=== PATIENT | female | born 1960 | race Caucasian/White ===

== ENCOUNTER 2022-08-02 06:06 | Day surgery (SDC) | payer OTHER, SELFPAY ==
[2022-08-02] VITALS (13 sets, daily range): BP systolic 86–114; BP diastolic 47–68; PULSE 67–92; RESP 16; TEMP 36.7–37.5; O2SAT 95–99; BMI 21.1
[2022-08-02] MEDS: SODIUM CHLORIDE 0.9 % (FLUSH) 10 ML SYRINGE IVF (07:00)
[2022-08-02] MEDS: LACTATED RINGERS 1000 ML 1,000 ML 100 ML IV (07:00)
[2022-08-02] MEDS: CEFAZOLIN 1 GM inj IVP (07:36)
[2022-08-02] MEDS: BUPIVACAINE 0.5% 30 ML INJECTION (08:20)
[2022-08-02] MEDS: BUPIVACAINE LIPOSOME 133 MG/10 ML INJ INFILTRATI (08:20)
--- NOTE | 2022-08-02 08:34 | P.GSOP_ITS ---
Operative Note Date of procedure: 08/02/22 Type of Procedure: Hemorrhoidectomy Procedure Description: After discussing the risks and benefits of the procedure, the patient signed informed consent.? The operative site was marked and the patient was brought to the operating room and placed on the operating table in supine position.? Care was taken to pad the patient's pressure points.?? The patient was then given sedation and spinal anesthetic by anesthesia.?? The operative site was then prepped and draped in the usual sterile fashion.? A time-out was then performed. The patient was then transferred to the Operating Room table, placed in the prone jackknife position with appropriate bumps and padding. Care was taken to ensure the genitalia and breasts were properly positioned on the hip and chest rolls, respectively. The shoulders and arms were positioned with care to protect the brachial plexus. The buttocks were taped laterally. A sterile prep and drape was done in the usual fashion. External examination, digital rectal examination, and anoscopic examination were all done and revealed significantly redundant internal hemorrhoidal tissue in the anterior midline, posterior midline and right lateral aspects of the anal canal with associated residual hemorrhoidal skin tags. Based on this assessment, plans were made for a 3-quadrant closed hemorrhoidectomy to encompass the aforementioned aspects of the anal canal. Attention was initially directed to the largest area of involvement and then went to the progressively smaller areas and all were handled in the same fashion. An elliptical incision was made with a needle tip electrocautery from the anoderm up into the anal canal just above the dentate line. Careful dissection of the hemorrhoid complex was done in the plane between the internal anal sphincter and the submucosal vascular plexus up to just above the dentate line in each quadrant described above. Having established the proper plane, the hemorrhoidal tissue was then excised with the Ligasure device and sent to Pathology for analysis. Care was taken to preserve mucosa for a tension-free closure. The internal sphincter fibers were visualized at the base of the wound and were intact. The wound was closed in a running locked manner starting at the apex (proximal aspect of elliptical excision) with 3-0 chromic suture, coming out to the anoderm and then running back up in a simple fashion and tying down at the apex. Hemostasis was excellent. Mixture of Marcaine and Exparel was injected into the surgical field to assist with postoperative pain. The patient tolerated procedure well. There were no apparent complications. Instrument, sponge, and needle counts were correct at the end of the case. Sterile dressings were then applied. ? The patient was then woken and transported to the recovery area in stable condi tion. ? Findings: Internal hemorrhoids of the anterior midline, posterior midline and right lateral. A 3 quadrant hemorrhoidectomy was performed. Anesthesia: MAC and spinal Surgeon: Raya Gibson MD Estimated blood loss (mL): 10 Condition: stable Disposition: same day
--- NOTE | 2022-08-02 08:37 | W.ANESCHARGE ---
Anesthesia Charges Start Date/Time Anesthesia Start Date: 08/02/22 Anesthesia Start Time: 07:26 Stop Date/Time Anesthesia Stop Date: 08/02/22 Anesthesia Stop Time: 08:35 Summary Emergency: No
--- NOTE | 2022-08-02 08:45 | W.ANESCHARGE ---
Anesthesia Charges Start Date/Time Anesthesia Start Date: 08/02/22 Anesthesia Start Time: 07:26 Stop Date/Time Anesthesia Stop Date: 08/02/22 Anesthesia Stop Time: 08:35 Summary Emergency: No
[2022-08-02] MEDS: OXYCODONE 5 MG TABLET PO (10:05)
--- NOTE | 2022-08-05 04:41 | PC.NURSE ---
Pt called regarding post op pain from 08/02 hemorrhoidectomy stating the pain has slowly been getting worse, even with oxycodone q6h shes been taking scheduled along with tylenol and advil, using sitz bath and ice, had soft bms no bleeding or constipation. MD Gibson was called/updated and informed to have patient take up to 2 tables of oxycodone q6h, pt was agreeable to this, informed s&s to monitor.
== END 2022-08-02 10:35 | disposition home or self-care (01) ==
PROVIDERS: PCP Family Medicine; Visit Provider Surgery
PROC: (CPT 46260; principal; 2022-08-02 07:30)
DX: K64.8 Other hemorrhoids (principal)
CPT/HCPCS: 46260; 88304; 902; A9270; C9290; J0330; J0690; J1100; J2250; J2400; J2405; J2704; J3010; J3490; J7120

== ENCOUNTER 2023-07-31 07:00 | Outpatient (CLI) | payer OTHER, SELFPAY ==
--- NOTE | 2023-07-31 07:15 | MR_ITS ---
[facility] [address] [facility] [address] Phone:?[phone] Fax:?[phone] Referring Physician Information: Petr Johnson M.D. [address] [place] [id number] Phone:?[phone] Fax:?[phone] Patient:Thierno David D.O.B:?1960 Sex:?Female Phone:?[phone] [facility] MRN:?[id number] Exam Date:?07/31/2023 EXAM: MRI EXAMINATION OF THE LEFT KNEE CLINICAL INFORMATION: Left knee pain. No specific injury. No history of surgery to this area. Catching. Limited range of motion. Evaluate medial meniscus tear. TECHNICAL INFORMATION: Coronal PD and STIR. Axial PD and T2 fat saturation. Sagittal PD and PD fat saturation images acquired. No prior studies for comparison. INTERPRETATION: Bones: Localized subchondral cystic change involves the trochlear groove. No occult fracture, osseous contusion or stress reaction. No other abnormal bone marrow edema pattern is identified. Ligaments and tendons: Residua of a chronic sprain injury with mild thickening involving the mid to proximal medial collateral ligament. The iliotibial band, fibular collateral ligament, biceps femoris tendon and popliteus tendon all are intact. The anterior cruciate ligament is intact without acute sprain or tear. The posterior cruciate ligament is intact. Extensor Mechanism: The patellar and quadriceps tendons are intact. The medial and lateral retinacula are intact. Knee Joint: There is no knee joint effusion. There is a small popliteal cyst. There is no discrete loose body seen within the joint. Medial Compartment: There is a low to moderate grade appearance of a radial tear situated posterior to the midportion of the posterior horn medial meniscus. Surrounding changes of horizontal undersurface tearing. No displaced flap fragment or parameniscal cyst. There is no focal chondral defect. Mild chondral thinning appears present involving the medial joint compartment. Lateral Compartment: There is no evidence for discrete lateral meniscal tear. No displaced flap fragment or parameniscal cyst. There is no focal chondral defect. No other significant changes of chondromalacia. 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 No other significant chondromalacia. CONCLUSION: 1. There is a low to moderate grade radial tear situated posterior to the midportion of the posterior horn medial meniscus with surrounding horizontal undersurface tearing. 2. No evidence for a lateral meniscal tear. The cruciate ligaments are intact. 3. 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 4. Mild chondral thinning involves the medial joint compartment. 5. Residua of a low-grade chronic MCL sprain injury. KES Electronically signed on 07/31/2023 2:56:00 PM by Jhonathan Richmond M.D.
== END 2023-07-31 07:01 | disposition home or self-care (01) ==
PROVIDERS: PCP Family Medicine; Visit Provider Orthopaedic Surgery
DX: M25.562 Pain in left knee (principal); S83.242A Other tear of medial meniscus, current injury, left knee, initial encounter; M94.262 Chondromalacia, left knee; S83.412A Sprain of medial collateral ligament of left knee, initial encounter
CPT/HCPCS: 73721

== ENCOUNTER 2023-09-05 10:36 | Day surgery (SDC) | payer OTHER, SELFPAY ==
[2023-09-04] MEDS: LACTATED RINGERS 1000 ML 1,000 ML 100 ML IV (11:27)
[2023-09-05] VITALS (14 sets, daily range): BP systolic 95–111; BP diastolic 54–68; PULSE 66–88; RESP 12–16; TEMP 36.2–36.6; O2SAT 95–99; BMI 21.2
[2023-09-05] MEDS: SODIUM CHLORIDE 0.9 % (FLUSH) 10 ML SYRINGE IVF (11:28)
[2023-09-05] MEDS: CEFAZOLIN 2 GM INJ IVP (12:17)
[2023-09-05] MEDS: BUPIVACAINE 0.25% 30 ML INJECTION (12:45)
--- NOTE | 2023-09-05 12:48 | P.ORPRC_ITS ---
Procedure Note Date of procedure: 09/05/23 Procedure: PREOPERATIVE DIAGNOSIS: Left knee medial meniscus tear POSTOPERATIVE DIAGNOSIS: Left knee medial meniscus tear NAME OF OPERATION: Left knee arthroscopic partial medial meniscectomy SURGEON: Petr Johnson MD TRANSPORTATION WORKER: RONDA Cruz ANESTHESIA: Spinal ESTIMATED BLOOD LOSS: 0 mL COMPLICATIONS: None SPECIMENS: None DRAINS: None PREOPERATIVE ANTIBIOTICS: Ancef 2 gram INDICATIONS: The patient is a 63-year-old with a history of left knee medial pain. MRI scan is consistent with a medial meniscus tear. Despite appropriate nonoperative management, including activity modification, antiinflammatories, [id number] pain medication, bracing, physical therapy, and injections they continue to have pain and disability. Operative intervention was offered. The risks, benefits and expected outcomes were discussed in detail. These included but were not limited to: Infection, bleeding, injury to blood vessel or nerve, venous thromboembolism. All questions were answered to their satisfaction. PROCEDURE: Spinal anesthesia was administered. The patient was placed supine on the operating room table. The left lower extremity was prepped and draped in the usual sterile fashion. The limb was exsanguinated with the Uday bandage. The pneumatic tourniquet was inflated to 300 mmHg. A standard anterolateral portal was established. The arthroscope was introduced. The working portal was established anteromedially. Diagnostic arthroscopy was performed with findings as follows: The suprapatellar pouch is normal. Articular surface on the patella is normal. Articular surface on the trochlea is normal. The medial gutter is normal. The medial compartment shows diffuse grade 1/2 change on the medial femoral condyle, grade 1 change on the medial tibial plateau. The medial meniscus has a small radial tear at the junction of the midbody and posterior horn, which does not communicate with the capsule. There is some undersurface horizontal cleavage tearing.. The notch shows the ACL to be intact. The lateral compartment shows normal articular cartilage on the lateral femoral condyle and lateral tibial plateau. The lateral meniscus is normal. The lateral gutter is normal. The posterior horn of the medial meniscus was debrided to a stable base using the shaver. Arthroscopic instruments were removed, the portal sites were Steri-Stripped closed, the knee was infiltrated with 30 mL of 0.25% Marcaine without epinephrine. A dry dressing was applied, the tourniquet was released. Sponge and needle counts were correct x 2. The patient tolerated the procedure well. There were no apparent complications. They were carefully transferred to the hospital bed and taken to the postanesthesia care unit in satisfactory condition. PLAN: The patient will be discharged to home. They may weightbear as tolerates. Range of motion will be unrestricted. They will follow up in the office next week for a wound check.
--- NOTE | 2023-09-05 13:22 | W.ANESCHARGE ---
Anesthesia Charges Start Date/Time Anesthesia Start Date: 09/05/23 Anesthesia Start Time: 12:04 Stop Date/Time Anesthesia Stop Date: 09/05/23 Anesthesia Stop Time: 12:57
--- NOTE | 2023-09-05 15:26 | SUR.PHASEII ---
1500: pt ambulated to car with SBA. denies pain in left knee.
--- NOTE | 2023-09-16 06:37 | W.ANESCHARGE ---
Anesthesia Charges Start Date/Time Anesthesia Start Date: 09/05/23 Anesthesia Start Time: 12:04 Stop Date/Time Anesthesia Stop Date: 09/05/23 Anesthesia Stop Time: 12:57
== END 2023-09-05 15:00 | disposition home or self-care (01) ==
PROVIDERS: PCP Family Medicine; Visit Provider Orthopaedic Surgery
PROC: (CPT 29870; principal; 2023-09-05 12:15)
DX: M23.222 Derangement of posterior horn of medial meniscus due to old tear or injury, left knee (principal)
CPT/HCPCS: 29881; 1400; J0665; J0690; J1100; J2250; J2405; J2704; J3010; J7120

== ENCOUNTER 2024-04-03 18:15 | Outpatient (CLI) | payer OTHER, SELFPAY ==
--- OUTSIDE RECORDS SUMMARY | 2024-04-03 18:16 | XMS_ITS | Clinical Summary ---
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 90 Tablet 09/03/2023 Active Active Problems Problem Noted Date Diagnosed Date Acute diverticulitis 01/02/2018 Adenomatous colon polyp 12/28/2016 Overview: Colonoscopy 11/2016 polyp repeat in 5 years Colonoscopy 04/2022 diverticuli, redundant colon, repeat in 7 years, colowrap, 2 gallons Peg Adjustment disorder with mixed anxiety and depre ssed mood 01/26/2015 Resolved Problems Problem Noted Date Diagnosed Date Resolved Date Acute diverticulitis 01/02/2018 018 Encounters Date Type Department Care Team Description 04/03/2024 Nurse Triage [facility] [address] [place] [address] Donna Nolasco MD Vaginal Problem 01/27/2024 7:45 AM CDT Office Visit [facility] [address] [place] [address] Aby Uriarte PA Abdominal Pain 01/27/2024 Travel 01/27/2024 Nurse Triage [facility] [address] [place] [address] Donna Nolasco MD Abdominal Pain from Last 3 Months Immunizations Name Administration Dates Next Due COVID-19 vaccine (Moderna 100mcg/0.5mL) PF, MDV 01/24/2021,12/27/2020 COVID-19 vaccine (Moderna 50 mcg/0.5mL) 12YO+ BIVALENT PF, MDV 07/06/2023 COVID-19 vaccine (Moderna Jac lora 50mcg/0.25mL) PF, MDV 09/19/2021 Influenza, IIV4 07/17/2022 Influenza, IIV4 (=>6mos) MDV 06/17/2020,07/27/20 19 Influenza, ccIIV3 (Age >=18 Years) 07/06/2023 Influenza,CCIIV4 PRESERV FREE 06/28/2021 Tdap 07/17/2022 Zoster (Shingrix-RZV, recombinant) 03/29/2022, Family History Medical History Relation Name Comments Hyperlipidemia Father Ta Zazueta Other Paternal Grandfather liver c irrhosis Other Paternal Grandmother Chayo on's Other Sister 4 uterine problem s Cancer-breast No Family History Relation Name Status Comments Daughter Kassandra Alive Father Ta Zazueta Alive Maternal Grandfather Maternal Grandmother Mother Marcella Zazueta Alive Paternal Grandfather Paternal Grandmother Sister 1 Charlotte Alive Sister 2 Clara Alive Sister 3 Autumn Alive Sister 4 Son Og Alive Social History Tobacco Use Types Packs/Day Years Used Date Smoking Tobacco: Never Smokeless Tobacco: Never Tobacco Cessation:Counseling Given: Yes Alcohol Use Standard Drinks/Week Comments Yes 0.8 (1 standard drink = 0.6 oz p ure alcohol) PHQ-2 Answer Date Recorded PHQ-2 TOTAL SCORE 0 02/26/2023 Social Connections Answer Date Recorded Frequency of Communication with Friends and Fami ly 0 01/27/2024 Financial Resource Strain Answer Date R ecorded Difficulty of Paying Living Expenses 3 01/27/2024 Difficulty of Paying Living Expenses Not on file 01/27/2024 Food Insecurity Answer Date Recorded Worried About Running Out of Food in the Last Ye ar 1 01/27/2024 Transportation Needs Answer Date Record ed Lack of Transportation (Medical) 1 01/27/2024 Housing Stability Answer Date Recorded Unable to Pay for Housing in the Last Year 1 01/27/2024 Sex and Gender Information Value Date Recorded Sex Assigned at Not on file Gender Identity Not on file Sexual Orientation Not on file Obstetrics History Para Term AB IAB SAB Ectopic Multiple Livin g Live Births 2 2 2 2 Date Outcome GA Total Labor Labor/2nd/3rd Weight Sex Type Anes PTL Karla A1 A5 Name Clin Term Term Last Filed Vital Signs Vital Sign Reading Time Taken Comments Blood Pressure 103/68 01/27/2024 7:45 AM CDT Pulse 97 01/27/2024 7:45 AM CDT Temperature 36.8 ??C (98.2 ??F) 01/27/2024 7:45 AM CD T Respiratory Rate - - Oxygen Saturation 96% 01/27/2024 7:45 AM CDT Inhaled Oxygen Concentration - - Weight 58.1 kg (128 lb) 01/27/2024 7:45 AM CDT Height 165.1 cm (5' 5) 02/26/2023 8:32 AM CDT Body Mass Index 21.3 02/26/2023 8:32 AM CDT Plan of Treatment Health Maintenance Due Date Last Done Comments HIV for age 15-65 1977 Hepatitis C screening for age 18-79 01/24/1980 Fecal testing non-DNA (FIT,FOBT,iFOBT) for age 45-75 05/04/2023 05/04/2022 (Verified in Care Everywhere or Patient Record), 05/04/2022, 08/12/2014 COVID-19 vaccine series ( season) 2023 07/06/2023, 07/23/2022, 09/19/2021, Additional history exists BMI (ht and wt on same day) for age 18+ 02/27/2024 02/26/2023, 07/17/2022, 05/04/2021, Additional history exists Depression screening for age 12+ 02/27/2024 02/26/2023, 12/11/2019, 01/01/2019, Additional history exists Influenza for age 50-64 05/31/2024 07/06/20 23, 07/17/2022, 06/28/2021, Additional history exists Mammogram for age 45-75 11/21/2024 11/21/19 24, 11/19/2022, 04/18/2021, Additional history exists Lipids for age 45-75 12/10/2024 12/11/2019, 01/01/2019, 01/10/2017, Additional history exists Pap test for age 21-65 02/27/2028 , 02/26/2023, 12/11/2019, Additional history exists Colonoscopy through age 75 05/04/202905/04, 05/04/2022, 05/04/2022, Additional history exists Tetanus booster 07/17/2032 07/17/2022 Zoster (shingles) series for age 50+ Completed 03/29/2022, 11/23/2021 Tdap Completed 07/17/2022 Pneumococcal series for age 6-64 Aged Out No longer eligible based on patient's age to complete this topic Procedures Procedure Name Priority Date/Time Associated Diagnosis Comments XR MAMMO SANGEETHA BILAT SCREEN Routine 11/21/2023 8:29 AM UNIVERSAL BRANCH CONSULTANT Visit for screening mammogram HPV THIN PREP Routine 02/26/2023 9:15 AM CDT Pap smear for cervical cancer screening COLONOSCOPY SCREENING Routine 05/04/2022 8:31 AM CDT History of colon polyps LIPID PANEL W REFLEX MEASURED LDL Routine 12/11/2019 11:53 AM CDT Lipid screening OCCULT BLOOD IFOBT STOOL Routine 08/12/2014 10:00 AM UNIVERSAL BRANCH CONSULTANT Colon cancer screening from Last 3 Months or Most Recently Relevant to Health Maintenance Results * XR MAMMO SANGEETHA BILAT SCREEN (11/21/2023 8:29 AM UNIVERSAL BRANCH CONSULTANT) Anatomical Region Laterality Modality BREASTS, Breast Left, Breast Right Bilateral Mammography Impressions 11/21/2023 3:48 PM UNIVERSAL BRANCH CONSULTANT ??There is no radiographic evidence for malignancy. ??Recommend annual mammograms. MAMMOGRAM ASSESSMENT: ??ACR 2 Benign PATIENTS: You will also receive a letter with your examination results in an easy to read format. ??If you have questions about your results, please contact your referring provider. Narrative 11/21/2023 3:48 PM UNIVERSAL BRANCH CONSULTANT For Patients: As a result of the Century Cures Act, medical imaging exams and procedure reports are released immediately into your electronic medical record. You may view this report before your referring provider. If you have questions, please contact your health care provider. XR MAMMO SANGEETHA BILAT SCREEN [[id number]] CLINICAL HISTORY: ??This is an asymptomatic 63 y.o. patient. INDICATION FOR EXAM: Mammogram Screening. TECHNIQUE: CC & MLO views were obtained. ??This study was evaluated with the assistance of Computer-Aided Detection. Breast Tomosynthesis was used in interpretation. COMPARISON FILMS: Yes 11/19/22 [facility] 04/18/21 [facility] FINDINGS: ??The breasts are heterogeneously dense, which may obscure small masses. ??No suspicious masses or microcalcifications. ??There are benign appearing mass(es) and Post biopsy changes of right breast. Donna Nolasco MD MAMMO * HPV HIGH RISK (02/26/2023 9:15 AM CDT) TYPE 16 Negative Negative 03/01/2023 11:43 AM CDT [facility] TYPE 18 Negative Negative 03/01/2023 11:43 AM CDT [facility] OTHER HIGH RISK TYPES Negative Negative 03/01/2023 11:43 AM CDT [facility] Other (Cervical) Non-Blood / Unknown 02/26/2023 9:15 AM CDT 02/27/2023 9:30 AM CDT Narrative [facility] - 03/01/2023 11:43 AM CDT HPV types 16, 18, 31, 33, 35, 39, 45, 51, 52, 56, 58, 59, 66 and 68 DNA were undetectable or below the pre-set threshold. Methodology: Radha Johan 4800 HPV Test Donna Nolasco MD MICROBIOLOGY [facility] [address] [place] [address], * COLONOSCOPY (05/04/2022 9:02 AM CDT) 05/04/2022 9:02 AM CDT Narrative Transcriptions Uday Alcaraz MD - 05/04/2022 10:12 AM CDT Patient Name: Kyleigh David Procedure Date: 05/04/2022 Gender: Female Date of : 1960 Admit Type: Outpatient Procedure: Colonoscopy Proceduralist: Uday Alcaraz MD , Roslyn Moody (Nurse) Referring MD: Donna Nolasco Indications/Pre-Op Diagnosis: High risk colon cancer surveillance:Personal history of adenoma less than 10 mm in size, Last colonoscopy: November 2016 Medications: Fentanyl 100 micrograms IV, Midazolam 2 mgIV, The level of sedation administered wasmoderate Procedure Description: The patient had risks, benefits and alternatives explained to andgave informed consent. The patient had a stable cardiopulmonary status and judged an adequate candidate for conscious sedation. The colonoscope was passed through the anus and advanced to thececum, identified by appendiceal orifice and ileocecal valve. Thecolonoscopy was performed without difficulty. The patient tolerated the procedure well. The quality of the bowel preparation was good. The ileocecal valve, appendiceal orifice, and rectum were photographed. Estimated Blood Loss & Specimen: Estimated blood loss: none. Estimated blood loss: none. Specimen collected - None Findings: The perianal and digital rectal examinations were normal. Scattered small and large-mouthed diverticula were found in theentire colon. The colon (entire examined portion) was moderately redundant. The exam was otherwise without abnormality. Impressions/Post-Op Diagnosis: - Diverticulosis in the entire examined colon. - Redundant colon. - The examination was otherwise normal. - No specimens collected. Recommendation: - Patient has a contact number available for emergencies. The signsand symptoms of potential delayed complications were discussed with the patient. Return to normal activities tomorrow. Written discharge instructions were provided to the patient. - Resume previous diet. - Continue present medications. - Await pathology results. - Repeat colonoscopy in 7 years for surveillance with colwrap. Moderate Sedation: Moderate (conscious) sedation was administered by the endoscopy nurse and supervised by the endoscopist. The patient's oxygen saturation, heart rate, blood pressure and response to care were monitored. Total physician intraservice time was 28 minutes. Uday Alcaraz MD 05/04/2022 10:12:30 AM This report has been signed electronically. Note Initiated On: 05/04/2022 9:02 AM Procedure Code(s): --- Professional --- 02571, Colonoscopy, flexible; diagnostic, including collection of specimen(s) bybrushing or washing, when performed (separateprocedure) 40156, Moderate sedation; each additional 15 minutes intraservice time G0500, Moderate sedation services providedby the same physician or other qualified health home care manager rn performing agastrointestinal endoscopic service that sedation supports, requiring the presence of an independent trained observer to assist in the monitoringof the patient's level of consciousness and physiological status; initial 15 minutes of intra-service time; patient age 5 years or older (additional time may be reported with 64129, as appropriate) Diagnosis Code(s): --- Professional --- Z86.010, Personal history of colonicpolyps K57.30, Diverticulosis of large intestine without perforation or abscess withoutbleeding Q43.8, Other specified congenitalmalformations of intestine CPT copyright 2020 [employer]. All rights reserved. The codes documented in this report are preliminary and upon business account executive reviewmay be revised to meet current compliance requirements. Scope In: 9:32:53 AM Scope Withdrawal Time 0 hours 7 minutes 57 seconds Scope Out: 9:58:27 AM Uday Alcaraz MD PROCEDURE ORD * (ABNORMAL) LIPID PANEL W REFLEX MEASURED LDL (12/11/2019 11:53 AM CDT) CHOLESTEROL,TOTAL 267(H) 100 - 199 mg/dL 12/11/2019 6:54 PM CDT [facility] TRIGLYCERIDES 94 <150 mg/dL 12/11/2019 6:54 PM CDT [facility] HDL CHOLESTEROL 71 >40 mg/dL 0 6:54 PM CDT [facility] NON-HDL CHOLESTEROL 196(H) <145 mg/dl 12/11/2019 6:54 PM CDT [facility] CHOL/HDL RATIO 3.76 <4.50 12/11/2019 6:54 PM CDT [facility] LDL CHOLESTEROL 177(H) <=130 mg/dL 12/11/2019 6:54 PM CDT [facility] TR[facility] PROVIDER ORDERED STATUS RANDOM 12/11/2019 6:54 PM CDT [facility] Blood BLOOD SPECIMEN / Unknown Venipuncture / Unknown 12/11/2019 11:53 AM CDT 12/11/2019 11:53 AM CDT Donna Nolasco MD CHEMISTRY [facility] [address] [place] [address], * OCCULT BLOOD IFOBT STOOL (08/12/2014 10:00 AM UNIVERSAL BRANCH CONSULTANT) STOOL BLOOD ,IFOBT Negative Negative, Invalid 08/12/2014 12:27 PM UNIVERSAL BRANCH CONSULTANT [facility] Stool specimen (specimen) STOOL SPECIMEN / Unknown Non-Blood / Unknown 08/12/2014 10:00 AM UNIVERSAL BRANCH CONSULTANT 08/12/2014 12:18 PM UNIVERSAL BRANCH CONSULTANT Donna Nolasco MD LABORATORY [facility] [address] [place] [address], [place] [phone] from Last 3 Months or Most Recently Relevant to Health Maintenance Care Teams Territory Sales Manager Relationship Specialty Start Date End Date Donna Nolasco MD [address] [place] [address] PCP - General 02/01/06
[2024-04-03 23:17] LABS: Chlamydia DNA Amplified* NOT DETECTED (No Detected); GC DNA Amplified* NOT DETECTED (No Detected)
== END 2024-04-03 18:16 | disposition home or self-care (01) ==
LOC: NFLDUCREF 18:15
PROVIDERS: PCP Family Medicine; Visit Provider Nurse Practitioner
DX: N89.8 Other specified noninflammatory disorders of vagina (principal); Z11.3 Encounter for screening for infections with a predominantly sexual mode of transmission
CPT/HCPCS: 87491; 87591

== ENCOUNTER 2024-05-02 09:34 | Outpatient (CLI) | payer OTHER, SELFPAY ==
--- OUTSIDE RECORDS SUMMARY | 2024-05-02 09:37 | XMS_ITS | Clinical Summary ---
Author Organization [facility] & [facility] Address [place], [place] [address] Care Team Providers Care Experimental Box Tester Name Role Phone Donna Nolasco MD Primary Care Provide r Allergies No known active allergies Medications Medication Sig Dispensed Refills Start Date End Date Status sennosides-docusate (SENOKOT S) (8.6-50 mg) tabletIndications:Basket Turner alexander constipation Take 1 Tablet by mouth [...] Diagnosed Date Resolved Date Acute diverticulitis 01/02/2018 04 018 Encounters Date Type Department Care Team Description 04/03/2024 Nurse Triage [facility] [address] [place] [address] Donna Nolasco MD Vaginal Problem from Last 3 Months Immunizations Name Administration [...] SANGEETHA BILAT SCREEN Routine 11/21/2023 8:29 AM CONTRACT ADMINISTRATION SPECIALIST Visit for screening mammogram HPV THIN PREP Routine 02/26/2023 9:15 AM CDT Pap smear for cervical cancer screening COLONOSCOPY SCREENING Routine 05/04/2022 8:31 AM CDT History of colon polyps LIPID PANEL W REFLEX MEASURED LDL Routine 12/11/2019 11:53 AM CDT Lipid screening OCCULT BLOOD IFOBT STOOL Routine 08/12/2014 10:00 AM CONTRACT ADMINISTRATION SPECIALIST Colon cancer screening from Last 3 Months or Most Recently Relevant to Health Maintenance Results * XR MAMMO SANGEETHA BILAT SCREEN (11/21/2023 8:29 AM CONTRACT ADMINISTRATION SPECIALIST) Anatomical Region Laterality Modality BREASTS, Breast Left, Breast Right Bilateral Mammography Impressions 11/21/2023 3:48 PM CONTRACT ADMINISTRATION SPECIALIST ??There is no radiographic evidence for malignancy. ??Recommend annual mammograms. MAMMOGRAM ASSESSMENT: ??ACR 2 Benign PATIENTS: You will also receive a letter with your examination results in an easy to read format. ??If you have questions about your results, please contact your referring provider. Narrative 11/21/2023 3:48 PM CONTRACT ADMINISTRATION SPECIALIST For Patients: As a result of the 21st Century Cures Act, medical imaging exams and procedure reports are released immediately into your electronic medical record. You may view this report before your referring provider. If you have questions, please contact your health care provider. XR MAMMO SANGEETHA BILAT SCREEN [[id number]] CLINICAL HISTORY: ??This is an asymptomatic 63 y.o. patient. INDICATION FOR EXAM: Mammogram Screening. TECHNIQUE: CC & MLO views were obtained. ??This study was evaluated with the assistance of Computer-Aided Detection. Breast Tomosynthesis was used in interpretation. COMPARISON FILMS: Yes 11/19/22 [facility] 04/18/21 [facility] FINDINGS: ??The breasts are heterogeneously dense, which may obscure small masses. ??No suspicious masses or microcalcifications. ??There are benign appearing mass(es) and Post biopsy changes of right breast. Donna Nolasco MD MAMMO * HPV HIGH RISK (02/26/2023 9:15 AM CDT) TYPE 16 Negative Negative 03/01/2023 11:43 AM CDT [facility] TR[facility] LAB[facility] TYPE 18 Negative Negative 03/01/2023 11:43 AM CDT [facility] TRAL LABORATORY OTHER HIGH RISK TYPES Negative Negative 03/01/2023 11:43 AM CDT [facility] TRA LABORATORY Other (Cervical) Non-Blood / Unknown 02/26/2023 9:15 AM CDT 02/27/2023 9:30 AM CDT Narrative [facility] - 03/01/2023 11:43 AM CDT HPV types 16, 18, 31, 33, 35, 39, 45, 51, 52, 56, 58, 59, 66 and 68 DNA were undetectable or below the pre-set threshold. Methodology: bodaplanes Johan 4800 HPV Test Donna Nolasco MD MICROBIOLOGY [facility] [address] [place] [address], * COLONOSCOPY (05/04/2022 9:02 AM CDT) 05/04/2022 [...] 9:02 AM Procedure Code(s): --- Professional --- 17313, Colonoscopy, flexible; diagnostic, including collection of specimen(s) bybrushing or washing, when performed (separateprocedure) 01446, Moderate sedation; each additional 15 minutes intraservice time G0500, Moderate sedation services providedby the same physician or other qualified health home care administrator performing agastrointestinal endoscopic service that sedation supports, requiring the presence of an independent trained observer to assist in the monitoringof the patient's level of consciousness and physiological status; initial 15 minutes of intra-service time; patient age 5 years or older (additional time may be reported with 07534, as appropriate) Diagnosis Code(s): --- Professional --- Z86.010, Personal history of colonicpolyps K57.30, Diverticulosis of large intestine without perforation or abscess withoutbleeding Q43.8, Other specified congenitalmalformations of intestine CPT copyright 2020 [employer]. All rights reserved. The codes documented in this report are preliminary and upon java developer analyst reviewmay be revised to meet current compliance requirements. Scope In: 9:32:53 AM Scope Withdrawal Time 0 hours 7 minutes 57 seconds Scope Out: 9:58:27 AM Uday Alcaraz MD PROCEDURE ORD * (ABNORMAL) LIPID PANEL W REFLEX MEASURED LDL (12/11/2019 11:53 AM CDT) CHOLESTEROL,TOTAL 267(H) 100 - 199 mg/dL 12/11/2019 6:54 PM CDT [facility] TRA LABORATORY TRIGLYCERIDES 94 <150 mg/dL 12/11/2019 6:54 PM CDT [facility] TRAL LABORATORY HDL CHOLESTEROL 71 >40 mg/dL 0 6:54 PM CDT [facility]AL [facility] NON-HDL CHOLESTEROL 196(H) <145 mg/dl 12/11/2019 6:54 PM CDT [facility]AL LAB[facility] CHOL/HDL RATIO 3.76 <4.50 12/11/2019 6:54 PM CDT [facility] LDL CHOLESTEROL 177(H) <=130 mg/dL 12/11/2019 6:54 PM CDT [facility] TRAL LAB[facility]ATORY PROVIDER ORDERED STATUS RANDOM 12/11/2019 6:54 PM CDT [facility]AL [facility] Blood BLOOD SPECIMEN / Unknown Venipuncture / Unknown 12/11/2019 11:53 AM CDT 12/11/2019 11:53 AM CDT Donna Nolasco MD CHEMISTRY [facility] [address] [place] [address], [place] * OCCULT BLOOD IFOBT STOOL (08/12/2014 10:00 AM CONTRACT ADMINISTRATION SPECIALIST) STOOL BLOOD ,IFOBT Negative Negative, Invalid 08/12/2014 12:27 PM CONTRACT ADMINISTRATION SPECIALIST [facility] Stool specimen (specimen) STOOL SPECIMEN / Unknown Non-Blood / Unknown 08/12/2014 10:00 AM CONTRACT ADMINISTRATION SPECIALIST 08/12/2014 12:18 PM CONTRACT ADMINISTRATION SPECIALIST Donna Nolasco MD LABORATORY [facility] [address] [place] [address], from Last 3 Months or Most Recently Relevant to Health Maintenance Care Teams Experimental Box Tester Relationship Specialty Start Date End Date Donna Nolasco MD [address] [place] [address] PCP - General 02/01/06
== END 2024-05-02 09:35 | disposition home or self-care (01) ==
LOC: NFLDUCREF 09:35
PROVIDERS: PCP Family Medicine; Visit Provider Nurse Practitioner Family
DX: N89.8 Other specified noninflammatory disorders of vagina (principal); R10.9 Unspecified abdominal pain
CPT/HCPCS: 87086

== ENCOUNTER 2024-05-20 07:04 | Outpatient (CLI) | payer OTHER, SELFPAY ==
--- OUTSIDE RECORDS SUMMARY | 2024-05-20 07:06 | XMS_ITS | Clinical Summary ---
Author Organization [facility] Address [place], [place] [address] Care Team Providers Care Building Maintenance Superintendent Name Role Phone Donna Nolasco MD Primary Care Provide r Allergies No known active allergies Medications Medication Sig Dispensed Refills Start Date End Date Status sennosides-docusate (SENOKOT S) (8.6-50 mg) tabletIndications:Vice President Of Talent Management alexander constipation Take 1 Tablet by mouth [...] Department Care Team Description 04/03/2024 Nurse Triage [facility] [address] [place] [address] Donna Nolasco MD Vaginal Problem from Last [...] Medical History Relation Name Comments Hyperlipidemia Father aT Zazueta Other Paternal Grandfather liver c irrhosis [...] SANGEETHA BILAT SCREEN Routine 11/21/2023 8:29 AM DATABASE DESIGN ANALYST Visit for screening mammogram HPV THIN PREP Routine 02/26/2023 9:15 AM CDT Pap smear for cervical cancer screening COLONOSCOPY SCREENING Routine 05/04/2022 8:31 AM CDT History of colon polyps LIPID PANEL W REFLEX MEASURED LDL Routine 12/11/2019 11:53 AM CDT Lipid screening OCCULT BLOOD IFOBT STOOL Routine 08/12/2014 10:00 AM DATABASE DESIGN ANALYST Colon cancer screening from Last 3 Months or Most Recently Relevant to Health Maintenance Results * XR MAMMO SANGEETHA BILAT SCREEN (11/21/2023 8:29 AM DATABASE DESIGN ANALYST) Anatomical Region Laterality Modality BREASTS, Breast Left, Breast Right Bilateral Mammography Impressions 11/21/2023 3:48 PM DATABASE DESIGN ANALYST ??There is no radiographic evidence for malignancy. ??Recommend annual mammograms. MAMMOGRAM ASSESSMENT: ??ACR 2 Benign PATIENTS: You will also receive a letter with your examination results in an easy to read format. ??If you have questions about your results, please contact your referring provider. Narrative 11/21/2023 3:48 PM DATABASE DESIGN ANALYST For Patients: As a result of the 21st Century Cures Act, medical imaging exams and procedure reports are released immediately into your electronic medical record. You may view this report before your referring provider. If you have questions, please contact your health care provider. XR MAMMO SANGEETHA BILAT SCREEN [[id number]] CLINICAL HISTORY: ??This is an asymptomatic 63 y.o. patient. INDICATION FOR EXAM: Mammogram Screening. TECHNIQUE: CC & MLO views were obtained. ??This study was evaluated with the assistance of Computer-Aided Detection. Breast Tomosynthesis was used in interpretation. COMPARISON FILMS: Yes 11/19/22 [facility] 04/18/21 [facility] FINDINGS: ??The breasts are heterogeneously dense, which may obscure small masses. ??No suspicious masses or microcalcifications. ??There are benign appearing mass(es) and Post biopsy changes of right breast. Donna Nolasco MD MAMMO * HPV HIGH RISK (02/26/2023 9:15 AM CDT) TYPE 16 Negative Negative 03/01/2023 11:43 AM CDT [facility] TYPE 18 Negative Negative 03/01/2023 11:43 AM CDT [facility] OTHER HIGH RISK TYPES Negative Negative 03/01/2023 11:43 AM CDT [facility] Other (Cervical) Non-Blood / Unknown 02/26/2023 9:15 AM CDT 02/27/2023 9:30 AM CDT Narrative [facility] - 03/01/2023 11:43 AM CDT HPV types 16, 18, 31, 33, 35, 39, 45, 51, 52, 56, 58, 59, 66 and 68 DNA were undetectable or below the pre-set threshold. Methodology: [employer] 4800 HPV Test Donna Nolasco MD MICROBIOLOGY [facility] [address] [place] [address], * COLONOSCOPY (05/04/2022 9:02 AM CDT) 05/04/2022 [...] 9:02 AM Procedure Code(s): --- Professional --- 81773, Colonoscopy, flexible; diagnostic, including collection of specimen(s) bybrushing or washing, when performed (separateprocedure) 48975, Moderate sedation; each additional 15 minutes intraservice time G0500, Moderate sedation services providedby the same physician or other qualified health career technical education instructor performing agastrointestinal endoscopic service that sedation supports, requiring the presence of an independent trained observer to assist in the monitoringof the patient's level of consciousness and physiological status; initial 15 minutes of intra-service time; patient age 5 years or older (additional time may be reported with 36597, as appropriate) Diagnosis Code(s): --- Professional --- Z86.010, Personal history of colonicpolyps K57.30, Diverticulosis of large intestine without perforation or abscess withoutbleeding Q43.8, Other specified congenitalmalformations of intestine CPT copyright 2020 [employer]. All rights reserved. The codes documented in this report are preliminary and upon invoice coder reviewmay be revised to meet current compliance requirements. Scope In: 9:32:53 AM Scope Withdrawal Time 0 hours 7 minutes 57 seconds Scope Out: 9:58:27 AM Uday Alcaraz MD PROCEDURE ORD * (ABNORMAL) LIPID PANEL W REFLEX MEASURED LDL (12/11/2019 11:53 AM CDT) CHOLESTEROL,TOTAL 267(H) 100 - 199 mg/dL 12/11/2019 6:54 PM CDT [facility] TRIGLYCERIDES 94 <150 mg/dL 12/11/2019 6:54 PM CDT [facility] HDL CHOLESTEROL 71 >40 mg/dL 0 6:54 PM CDT [facility] NON-HDL CHOLESTEROL 196(H) <145 mg/dl 12/11/2019 6:54 PM CDT [facility] CHOL/HDL RATIO 3.76 <4.50 12/11/2019 6:54 PM CDT [facility] LDL CHOLESTEROL 177(H) <=130 mg/dL 12/11/2019 6:54 PM CDT [facility] PROVIDER ORDERED STATUS RANDOM 12/11/2019 6:54 PM CDT [facility] Blood BLOOD SPECIMEN / Unknown Venipuncture / Unknown 12/11/2019 11:53 AM CDT 12/11/2019 11:53 AM CDT Donna Nolasco MD CHEMISTRY [facility] [address] [place] [address], [place] * OCCULT BLOOD IFOBT STOOL (08/12/2014 10:00 AM DATABASE DESIGN ANALYST) STOOL BLOOD ,IFOBT Negative Negative, Invalid 08/12/2014 12:27 PM DATABASE DESIGN ANALYST [facility] Stool specimen (specimen) STOOL SPECIMEN / Unknown Non-Blood / Unknown 08/12/2014 10:00 AM DATABASE DESIGN ANALYST 08/12/2014 12:18 PM DATABASE DESIGN ANALYST Donna Nolasco MD LABORATORY [facility] [address] [place] [address], from Last 3 Months or Most Recently Relevant to Health Maintenance Care Teams Building Maintenance Superintendent Relationship Specialty Start Date End Date Donna Nolasco MD [address] [place] [address] PCP - General 02/01/06
--- NOTE | 2024-05-20 07:15 | CRLHL7_ITS ---
For Patients: As a result of the Century Cures Act, medical imaging exams and procedure reports are released immediately into your electronic medical record. You may view this report before your referring provider. If you have questions, please contact your health care provider. CLINICAL HISTORY: abnormal vaginal discharge TECHNIQUE: 2D rueda scale and color Doppler images were acquired of the pelvis using a transvaginal approach. FINDINGS: Hypoechoic uterine fibroid within the lower uterus measures 11 x 7 x 10 millimeters. Additional intramural fibroid in the mid posterior uterus measuring 1.8 x 0.7 x 1.3 cm. The endometrial lining appears normal and measures 1.6 mm in thickness. The ovaries are not visualized. There are no suspicious fluid collections within the cul-de-sac. IMPRESSION: Endometrial thickness 1.6 millimeters. No endometrial fluid. Intramural fibroids measuring up to 1.8 cm. Dictated by Foster Mayer MD @ 05/20/2024 10:17:05 AM (Electronically Signed)
== END 2024-05-20 07:05 | disposition home or self-care (01) ==
LOC: US 07:05
PROVIDERS: PCP Family Medicine; Visit Provider Obstetrics & Gynecology
DX: N89.8 Other specified noninflammatory disorders of vagina (principal); R93.89 Abnormal findings on diagnostic imaging of other specified body structures
CPT/HCPCS: 76830